=== PATIENT | female | born 1990 | race Caucasian/White ===

== ENCOUNTER → 2016-11-14 | Outpatient (CLI) | payer OTHER ==
--- NOTE | 2016-11-14 13:04 | DIAGNOSTIC IMAGING REPORT ---
RIGHT ANKLE 3 VIEWS HISTORY: Right ankle pain. SPRAIN OF UNSPECIFIED LIGAMENT Right COMPARISON: None. FINDINGS: No acute fracture or dislocation within the right ankle. Well-corticated ossific density adjacent to the tip of the lateral malleolus is consistent with an old avulsion injury. Lateral soft tissue swelling. No radiopaque foreign bodies. IMPRESSION: No acute fracture or dislocation within the right ankle. Old avulsion injury at the lateral malleolus. Electronically signed by: Karri Brasher M.D. 11/14/2016 1:02 PM Dictated Date/Time: 11/14/2016 1:00 PM
== END | disposition home or self-care (01) ==
LOC: C.RAD1850 12:33
PROVIDERS: ATTEND Family Medicine Adolescent Medicine
DX: S93.401A Sprain of unspecified ligament of right ankle, initial encounter (principal); X58.XXXA Exposure to other specified factors, initial encounter